=== PATIENT | female | born 1935 | race Two or more races ===

== ENCOUNTER → 2019-03-16 | Outpatient (CLI) | payer OTHER ==
[~2019-03-16] MED LIST: ATENOLOL25 MG; COUMADIN3 MG; COUMADIN5 MG; LEVOXYL125 MCG; PREVACID30 MG
== END | disposition home or self-care (01) ==
LOC: RAD 501 10:31
DX: I48.0 Paroxysmal atrial fibrillation (principal)

== ENCOUNTER 2019-10-18 07:13 | Emergency (ER) | payer OTHER ==
[~2019-10-18] VITALS: Ht 152.4 cm; Wt 68.0 kg
== END 2019-10-18 16:58 | disposition home or self-care (01) ==
LOC: ER 07:13
DX: M71.21 Synovial cyst of popliteal space [Baker], right knee (principal); R60.0 Localized edema

== ENCOUNTER 2019-11-30 10:30 | Inpatient (IN) | payer OTHER ==
[~2019-11-30] VITALS: Ht 160 cm; Wt 81.6 kg
[2019-12-09] MEDS ORDERED: AMOX-CLAV 875-1 EACH PO (15:26)
== END 2019-12-10 10:15 | disposition home or self-care (01) | DRG 392 ==
LOC: ER 10:30 → SURH 18:40 → SEC-K 21:28 → MEDJ 21:34 → SEC-K 22:41 → SURH 22:42
PROVIDERS: ADMIT Internal Medicine
PROC: BW21Y0Z Computerized Tomography (CT Scan) of Abdomen and Pelvis using Other Contrast, Unenhanced and Enhanced (ICD-10-PCS; principal; 2019-11-30)
PROC: B54DZZZ Ultrasonography of Bilateral Lower Extremity Veins (ICD-10-PCS; 2019-12-05)
DX: K57.32 Diverticulitis of large intestine without perforation or abscess without bleeding (principal); J90 Pleural effusion, not elsewhere classified; Q61.02 Congenital multiple renal cysts; I82.4Z3 Acute embolism and thrombosis of unspecified deep veins of distal lower extremity, bilateral; F05 Delirium due to known physiological condition; M62.81 Muscle weakness (generalized); I87.2 Venous insufficiency (chronic) (peripheral); E03.8 Other specified hypothyroidism; G30.0 Alzheimer's disease with early onset; F02.80 Dementia in other diseases classified elsewhere, unspecified severity, without behavioral disturbance, psychotic disturbance, mood disturbance, and anxiety; Z79.01 Long term (current) use of anticoagulants